=== PATIENT | female | born 1985 | race Caucasian/White ===

== ENCOUNTER 2017-12-15 13:06 | Emergency (ER) | payer MEDICAID ==
[~2017-12-15] VITALS: Ht 152.4 cm; Wt 85.0 kg
[2017-12-15] MEDS ORDERED: ketorolac trometh inj. 60 MG/2 ML VIAL IM ONE (13:45)
[2017-12-15] MEDS ORDERED: HYDR-565 PO (14:27)
[2017-12-15 14:31] VITALS: BP 121/89
== END 2017-12-15 14:32 | disposition home or self-care (01) ==
LOC: ER 13:06
DX: S20.221A Contusion of right back wall of thorax, initial encounter (principal); W01.0XXA Fall on same level from slipping, tripping and stumbling without subsequent striking against object, initial encounter; Y93.89 Activity, other specified; Y92.89 Other specified places as the place of occurrence of the external cause; Y99.9 Unspecified external cause status
CPT/HCPCS: 72070; 96372; 99284; J1885

== ENCOUNTER 2020-07-18 10:34 | Emergency (ER) | payer MEDICAID ==
[~2020-07-18] VITALS: Ht 152.4 cm; Wt 66.8 kg
[2020-07-18] MEDS ORDERED: morphine 4 MG/ML inj SYRINge IV ONE (11:15)
[2020-07-18] MEDS ORDERED: normal saline 1000ml 1,000 ML IV ONE (11:30)
[2020-07-18 11:41] LABS: BASOPHILS # (AUTO) 0.1 X10'3 (0-0.2); BASOPHILS % (AUTO) 0.8 % (0-1); EOSINOPHILS # (AUTO) 0.3 X10'3 (0-0.9); EOSINOPHILS % (AUTO) 2.7 % (0-6); HEMATOCRIT 41.6 % (35.0-45.0); HEMOGLOBIN 13.7 g/dl (12.0-16.0); LYMPHOCYTES # (AUTO) 4.3 X10'3 (1.1-4.8); MEAN CORPUSCULAR HEMOGLOBIN 29.1 PG (27.0-31.0); MEAN CORPUSCULAR VOLUME 88.2 FL (78-98); MEAN PLATELET VOLUME 8.2 FL (7.4-10.4); MONOCYTES # (AUTO) 0.7 X10'3 (0-0.9); MONOCYTES % (AUTO) 7.1 % (2-12); NEUTROPHILS # (AUTO) 4.8 X10'3 (1.8-7.7); NEUTROPHILS % (AUTO) 47.4 % (42-75); PLATELET COUNT 272 X10'3 (140-440); RED BLOOD COUNT 4.72 X10'6 (4.20-5.60); RED CELL DISTRIBUTION WIDTH 13.2 % (11.5-14.5); WHITE BLOOD COUNT 10.2 X10'3 (4.5-11.0)
[2020-07-18 11:59] LABS: ALANINE AMINOTRANSFERASE 53 U/L (12-78); ALBUMIN 3.5 G/DL (3.4-5.0); ALBUMIN/GLOBULIN RATIO 0.9 (1.1-1.5); ALKALINE PHOSPHATASE 67 IU/L (46-116); ANION GAP 9 (8-16); ASPARTATE AMINO TRANSFERASE 23 U/L (10-37); BILIRUBIN,TOTAL 0.3 MG/DL (0.1-1.0); BLOOD UREA NITROGEN 6 MG/DL (7-18); BUN/CREATININE RATIO 7.2 (6.6-38.0); CALCIUM 8.9 MG/DL (8.5-10.1); CHLORIDE 107 MMOL/L (99-107); CREATININE 0.83 MG/DL (0.40-0.90); GLUCOSE 88 MG/DL (70-104); POTASSIUM 3.5 MMOL/L (3.5-5.1); SODIUM 143 MMOL/L (135-145); TOTAL CARBON DIOXIDE 26.7 MMOL/L (24-32); TOTAL PROTEIN 7.3 G/DL (6.4-8.2); eGFR 79 ML/MIN
[2020-07-18 12:02] LABS: URINE HCG NEGATIVE (NEG)
[2020-07-18] MEDS ORDERED: iohexol 300mg/ml 100ml inj. ONE (12:36)
[2020-07-18] MEDS ORDERED: DOCU-267 PO (13:07)
[2020-07-18] MEDS ORDERED: NORE1TAB26 PO (13:07)
[2020-07-18] MEDS ORDERED: OXYC10TA47 PO (13:07)
[2020-07-18] MEDS ORDERED: CYCL5TAB PO (13:07)
[2020-07-18] MEDS ORDERED: OMEP40CA13 PO (13:07)
[2020-07-18] MEDS ORDERED: ONDA4TAB12 PO (13:07)
[2020-07-18] MEDS ORDERED: VITAFUSION PO (13:09)
[2020-07-18 13:38] VITALS: BP 123/82
[2020-07-18] MEDS: morphine 2 MG/ML inj. syringe IV PRN ×4 (13:38→16:00)
[2020-07-18] MEDS ORDERED: LIDOcaine 1% W/epiNEPHrine 1:100,000 20ml vial ONE (14:00)
[2020-07-18] MEDS ORDERED: normal saline 1000ml 1,000 ML IV SCH (14:35)
[2020-07-18] MEDS ORDERED: magnesium hydroxide 30ml (MOM) UD suspension PO PRN (14:35)
[2020-07-18] MEDS ORDERED: ondansetron/PF 4mg/2ml inj IV PRN (14:35)
[2020-07-18] MEDS ORDERED: morphine 2 MG/ML inj. syringe IV PRN (14:35)
[2020-07-18] MEDS ORDERED: acetaminophen 325mg tablet PO PRN (14:35)
[2020-07-18] MEDS ORDERED: mag hydrox/Alum hydrox/simeth 30ml oral suspension PO PRN (14:35)
--- NOTE | 2020-07-18 16:02 | NUR ---
Report called to CRUZ Crowell
[2020-07-18] MEDS ORDERED: ondansetron/PF 4mg/2ml inj IV ONE (16:30)
[2020-07-18] MEDS ORDERED: heparin, porcine 5000 units/ml vial SQ SCH (20:00)
== END 2020-07-18 17:14 | disposition home or self-care (01) ==
LOC: ER 10:35 → UNDOADMOB 14:32 → ED HOLD 14:32 → UNDODISOB 17:17
DX: R10.11 Right upper quadrant pain (principal); R14.0 Abdominal distension (gaseous); Z98.890 Other specified postprocedural states; Z90.49 Acquired absence of other specified parts of digestive tract; Z56.0 Unemployment, unspecified; Z91.040 Latex allergy status; Z88.6 Allergy status to analgesic agent; Z88.8 Allergy status to other drugs, medicaments and biological substances; Z79.899 Other long term (current) drug therapy
CPT/HCPCS: 36415; 74177; 80053; 81025; 85025; 85610; 96361; 96374; 96375; 96376; 99285; J2270; J2405; J7030; Q9967; G0378

== ENCOUNTER 2020-08-18 20:57 | Emergency (ER) | payer MEDICAID ==
[~2020-08-18] VITALS: Ht 149.9 cm; Wt 62.2 kg
[~2020-08-18 20:57] MED LIST: CYCL5TAB PO; DOCU-267 PO; NORE1TAB26 PO; OMEP40CA13 PO; ONDA4TAB12 PO; OXYC10TA47 PO; VITAFUSION PO
[2020-08-18] MEDS ORDERED: normal saline 1000ML IV soln IVB STA (20:59)
[2020-08-18] MEDS ORDERED: famotidine/PF 10 mg/ml inj IV ONE (21:00)
[2020-08-18] MEDS ORDERED: ipratropium/albuterol 3ml nebule NEB ONE (21:00)
[2020-08-18] MEDS ORDERED: methylPREDNISolone sod succ 125mg/2ml vial IV ONE (21:00)
[2020-08-18] MEDS ORDERED: diphenhydrAMINE 50 mg/ml inj IV ONE (21:00)
[2020-08-18] MEDS ORDERED: triamcinolone acetonide 40mg/ml inj IM ONE (21:00)
[2020-08-18] MEDS ORDERED: epiNEPHrine 1 mg/ml inj SQ ONE (21:00)
[2020-08-18 21:29] VITALS: BP 108/72
[2020-08-18] MEDS ORDERED: EPIN0.1521 IM (21:52)
== END 2020-08-18 23:18 | disposition home or self-care (01) ==
LOC: ER 20:57
DX: T78.40XA Allergy, unspecified, initial encounter (principal); R06.02 Shortness of breath; R07.89 Other chest pain; R06.2 Wheezing; Z90.49 Acquired absence of other specified parts of digestive tract; Z91.040 Latex allergy status; Z88.5 Allergy status to narcotic agent; Z88.6 Allergy status to analgesic agent; Z79.899 Other long term (current) drug therapy; X58.XXXA Exposure to other specified factors, initial encounter
CPT/HCPCS: 93005; 94640; 96372; 96374; 96375; 99284; J0171; J1200; J2930; J3301; J3490; J7030; 94760

== ENCOUNTER 2021-05-13 20:27 | Emergency (ER) | payer MEDICAID ==
[~2021-05-13] VITALS: Ht 170.2 cm; Wt 54.0 kg
[~2021-05-13 20:27] MED LIST changes: +DOCU-262 PO; -DOCU-267 PO; +EPIN0.1521 IM; -OMEP40CA13 PO; +OMEP40CA21 PO
[2021-05-13 20:33] VITALS: BP 143/100
[2021-05-13] MEDS ORDERED: normal saline 1000ML IV soln IVB STA (20:36)
[2021-05-13] MEDS ORDERED: famotidine/PF 10 mg/ml inj IV ONE (20:40)
[2021-05-13] MEDS ORDERED: epiNEPHrine 1 mg/ml inj SQ ONE (20:40)
== END 2021-05-13 22:05 | disposition home or self-care (01) ==
LOC: ER 20:27
DX: R06.02 Shortness of breath (principal); T78.02XA Anaphylactic reaction due to shellfish (crustaceans), initial encounter; R00.0 Tachycardia, unspecified; Z90.49 Acquired absence of other specified parts of digestive tract; Z88.6 Allergy status to analgesic agent; Z91.040 Latex allergy status; Z91.013 Allergy to seafood; Z79.899 Other long term (current) drug therapy; Y92.89 Other specified places as the place of occurrence of the external cause
CPT/HCPCS: 96372; 96374; 99284; J0171; J3490; J7030

== ENCOUNTER 2021-10-18 14:35 | Emergency (ER) | payer MEDICAID ==
[~2021-10-18] VITALS: Ht 149.9 cm; Wt 56.8 kg
[2021-10-18] MEDS ORDERED: DEXAMETHASONE 6 MG TABLET PO SCH (15:10)
[2021-10-18] MEDS ORDERED: diphenhydrAMINE 25mg capsule PO ONE (15:10)
[2021-10-18 15:54] VITALS: BP 103/63
[2021-10-18] MEDS ORDERED: EPIN0.3P3 IM (16:59)
== END 2021-10-18 17:14 | disposition home or self-care (01) ==
LOC: ER 14:36
DX: T78.40XA Allergy, unspecified, initial encounter (principal); Z90.49 Acquired absence of other specified parts of digestive tract; Z98.890 Other specified postprocedural states; Z88.5 Allergy status to narcotic agent; Z91.040 Latex allergy status; Z88.6 Allergy status to analgesic agent; Z91.013 Allergy to seafood; Z79.899 Other long term (current) drug therapy; X58.XXXA Exposure to other specified factors, initial encounter
CPT/HCPCS: 99283; Q0163; J8540

== ENCOUNTER 2022-04-04 20:39 | Emergency (ER) | payer MEDICAID ==
[~2022-04-04] VITALS: Ht 149.9 cm; Wt 57.3 kg
[~2022-04-04 20:39] MED LIST changes: +EPIN0.3P3 IM
[2022-04-04 20:54] LABS: BASOPHILS # (AUTO) 0.1 X10'3 (0-0.2); BASOPHILS % (AUTO) 0.9 % (0-1); EOSINOPHILS # (AUTO) 0.2 X10'3 (0-0.9); EOSINOPHILS % (AUTO) 1.8 % (0-6); HEMATOCRIT 43.7 % (35.0-45.0); HEMOGLOBIN 14.6 g/dl (12.0-16.0); LYMPHOCYTES # (AUTO) 3.5 X10'3 (1.1-4.8); LYMPHOCYTES % (AUTO) 40.1 % (21-51); MEAN CORPUSCULAR HEMOGLOBIN 29.9 PG (27.0-31.0); MEAN CORPUSCULAR HGB CONC 33.5 g/dL (33.0-36.5); MEAN CORPUSCULAR VOLUME 89.2 FL (78-98); MEAN PLATELET VOLUME 7.9 FL (7.4-10.4); MONOCYTES # (AUTO) 0.6 X10'3 (0-0.9); NEUTROPHILS # (AUTO) 4.4 X10'3 (1.8-7.7); NEUTROPHILS % (AUTO) 50.2 % (42-75); PLATELET COUNT 262 X10'3 (140-440); RED CELL DISTRIBUTION WIDTH 13.1 % (11.5-14.5); WHITE BLOOD COUNT 8.7 X10'3 (4.5-11.0)
[2022-04-04 21:42] LABS: ALANINE AMINOTRANSFERASE 14 U/L (12-78); ALBUMIN 4.3 G/DL (3.4-5.0); ALBUMIN/GLOBULIN RATIO 1.2 (1.1-1.5); ALKALINE PHOSPHATASE 76 IU/L (46-116); ANION GAP 6 (8-16); ASPARTATE AMINO TRANSFERASE 19 U/L (10-37); BILIRUBIN,TOTAL 0.3 MG/DL (0.1-1.0); BLOOD UREA NITROGEN 13 MG/DL (7-18); BUN/CREATININE RATIO 16.7 (6.6-38.0); CALCIUM 8.9 MG/DL (8.5-10.1); CHLORIDE 106 MMOL/L (99-107); CREATININE 0.78 MG/DL (0.40-0.90); GLUCOSE 108 MG/DL (70-104); MAGNESIUM 2.4 MG/DL (1.5-2.4); POTASSIUM 4.4 MMOL/L (3.5-5.1); SODIUM 138 MMOL/L (135-145); TOTAL CARBON DIOXIDE 26.1 MMOL/L (24-32); TOTAL PROTEIN 7.9 G/DL (6.4-8.2); eGFR 85 ML/MIN
[2022-04-05] MEDS ORDERED: ringers solution, lacted 1,000 ML IV ONE (01:45)
[2022-04-05] MEDS ORDERED: acetaminophen 325mg tablet PO ONE (01:45)
[2022-04-05] MEDS ORDERED: iohexol 350MG/ML 100ml bottle IV ONE (01:50)
--- NOTE | 2022-04-05 02:00 | NUR ---
Vocal Teacher agrees with EDWAR Owen assessment.
[2022-04-05 02:17] LABS: CLARITY,URINE CLEAR (Clear); COLOR,URINE YELLOW (Yellow); GLUCOSE, URINE NEGATIVE (Neg); KETONES,URINE 15 mg/dl (Neg); LEUKOCYTE ESTERASE ,URINE NEGATIVE (Neg); NITRITES, URINE NEGATIVE (Neg); OCCULT BLOOD,URINE NEGATIVE (Neg); PROTEIN,URINE NEGATIVE (Neg); UROBILINOGEN,URINE 0.2 E.U/dL (0.2-1.0)
[2022-04-05 02:18] LABS: URINE HCG NEGATIVE (NEG)
[2022-04-05 02:19] LABS: UA COLLECTION TYPE NON-SPECIFIED
[2022-04-05 02:31] LABS: URINE AMPHETAMINE SCREEN POSITIVE (Neg); URINE BARBITUATE SCREEN NEGATIVE (Neg); URINE BENZODIAZEPINES SCREEN NEGATIVE (Neg); URINE CANNABINOID SCREEN NEGATIVE (Neg); URINE COCAINE SCREEN NEGATIVE (Neg); URINE METHADONE SCREEN NEGATIVE (Neg); URINE OPIATE SCREEN NEGATIVE (Neg); URINE PHENCYCLIDINE SCREEN NEGATIVE (Neg)
[2022-04-05 05:00] VITALS: BP 102/66
== END 2022-04-05 05:02 | disposition home or self-care (01) ==
LOC: ER 20:40
DX: R07.9 Chest pain, unspecified (principal); R06.02 Shortness of breath; Z90.49 Acquired absence of other specified parts of digestive tract; Z88.8 Allergy status to other drugs, medicaments and biological substances; Z88.5 Allergy status to narcotic agent; Z79.899 Other long term (current) drug therapy; Z91.040 Latex allergy status; Z88.6 Allergy status to analgesic agent
CPT/HCPCS: 36415; 71045; 71275; 80053; 80305; 81003; 81025; 83735; 83880; 84484; 85025; 93005; 96360; 96361; 99285; J3490; J7120; Q9967

== ENCOUNTER 2022-04-06 15:41 | Emergency (ER) | payer MEDICAID ==
[~2022-04-06] VITALS: Ht 149.9 cm; Wt 63.6 kg
[2022-04-06 15:52] VITALS: BP 126/77
[2022-04-06 15:55] LABS: BASOPHILS % (AUTO) 0.5 % (0-1); EOSINOPHILS # (AUTO) 0.2 X10'3 (0-0.9); EOSINOPHILS % (AUTO) 2.7 % (0-6); HEMATOCRIT 41.5 % (35.0-45.0); LYMPHOCYTES % (AUTO) 36.9 % (21-51); MEAN CORPUSCULAR HGB CONC 33.7 g/dL (33.0-36.5); MEAN CORPUSCULAR VOLUME 88.9 FL (78-98); MEAN PLATELET VOLUME 7.8 FL (7.4-10.4); MONOCYTES # (AUTO) 0.6 X10'3 (0-0.9); MONOCYTES % (AUTO) 7.6 % (2-12); NEUTROPHILS # (AUTO) 4.3 X10'3 (1.8-7.7); NEUTROPHILS % (AUTO) 52.3 % (42-75); PLATELET COUNT 251 X10'3 (140-440); RED BLOOD COUNT 4.66 X10'6 (4.20-5.60); RED CELL DISTRIBUTION WIDTH 13.3 % (11.5-14.5); WHITE BLOOD COUNT 8.2 X10'3 (4.5-11.0)
[2022-04-06 16:11] LABS: ALANINE AMINOTRANSFERASE 14 U/L (12-78); ALBUMIN 3.9 G/DL (3.4-5.0); ALBUMIN/GLOBULIN RATIO 1.1 (1.1-1.5); ALKALINE PHOSPHATASE 76 IU/L (46-116); ANION GAP 8 (8-16); ASPARTATE AMINO TRANSFERASE 12 U/L (10-37); BILIRUBIN,TOTAL 0.2 MG/DL (0.1-1.0); BLOOD UREA NITROGEN 9 MG/DL (7-18); BUN/CREATININE RATIO 13.4 (6.6-38.0); CALCIUM 8.6 MG/DL (8.5-10.1); CHLORIDE 108 MMOL/L (99-107); CREATININE 0.67 MG/DL (0.40-0.90); GLUCOSE 102 MG/DL (70-104); POTASSIUM 3.7 MMOL/L (3.5-5.1); SODIUM 141 MMOL/L (135-145); TOTAL CARBON DIOXIDE 25.4 MMOL/L (24-32); TOTAL PROTEIN 7.3 G/DL (6.4-8.2); eGFR > 90 ML/MIN
[2022-04-06 22:15] LABS: D-DIMER < 0.19 MG/L FEU (0-0.50)
--- NOTE | 2022-04-07 00:50 | NUR ---
PT TX AND D/C BY
== END 2022-04-07 00:50 | disposition home or self-care (01) ==
LOC: ER 15:42
DX: I73.9 Peripheral vascular disease, unspecified (principal); R07.89 Other chest pain; Z90.49 Acquired absence of other specified parts of digestive tract; Z98.890 Other specified postprocedural states; Z91.040 Latex allergy status; Z88.6 Allergy status to analgesic agent; Z91.013 Allergy to seafood; Z79.899 Other long term (current) drug therapy
CPT/HCPCS: 36415; 71045; 80053; 83735; 83880; 84484; 85025; 85379; 85651; 93005; 93971; 99285

== ENCOUNTER 2023-08-13 13:37 | Day surgery (SDC) | payer BC ==
[2023-08-07 15:43] LABS: BASOPHILS # (AUTO) 0.1 X10'3 (0-0.2); BASOPHILS % (AUTO) 0.5 % (0-1); EOSINOPHILS # (AUTO) 0.3 X10'3 (0-0.9); EOSINOPHILS % (AUTO) 2.4 % (0-6); LYMPHOCYTES # (AUTO) 2.7 X10'3 (1.1-4.8); LYMPHOCYTES % (AUTO) 25.6 % (21-51); MEAN CORPUSCULAR HEMOGLOBIN 29.4 PG (27.0-31.0); MEAN CORPUSCULAR HGB CONC 33.6 g/dL (33.0-36.5); MEAN CORPUSCULAR VOLUME 87.3 FL (78-98); MONOCYTES # (AUTO) 0.8 X10'3 (0-0.9); MONOCYTES % (AUTO) 7.2 % (2-12); NEUTROPHILS # (AUTO) 6.9 X10'3 (1.8-7.7); NEUTROPHILS % (AUTO) 64.3 % (42-75); PRE OP HEMATOCRIT 42.1 % (35.0-45.0); PRE OP HEMOGLOBIN 14.1 g/dL (12.0-16.0); PRE OP PLATELET COUNT 292 X10'3 (140-440); PRE OP WHITE BLOOD COUNT 10.7 10'3 (4.8-10.8); RED BLOOD COUNT 4.82 X10'6 (4.20-5.60); RED CELL DISTRIBUTION WIDTH 13.3 % (11.5-14.5)
[2023-08-07 15:44] LABS: URINE HCG NEGATIVE (NEG)
[2023-08-07 15:58] LABS: ALBUMIN 3.7 G/DL (3.4-5.0); ALBUMIN/GLOBULIN RATIO 0.9 (1.1-1.5); ALKALINE PHOSPHATASE 74 IU/L (46-116); BLOOD UREA NITROGEN 15 MG/DL (7-18); BUN/CREATININE RATIO 21.4 (10.0-20.0); CALCIUM 8.4 MG/DL (8.5-10.1); CHLORIDE 105 MMOL/L (99-107); PRE OP ALT 13 U/L (30-65); PRE OP ANION GAP 7 (8-16); PRE OP AST 13 U/L (10-37); PRE OP BILIRUB, TOTAL 0.4 MG/DL (0.0-1.0); PRE OP GLUCOSE 88 MG/DL (70-104); PRE OP SODIUM 140 MMOL/L (135-145); TOTAL CARBON DIOXIDE 27.9 MMOL/L (24-32); TOTAL PROTEIN 7.6 G/DL (6.4-8.2); eGFR > 90 ML/MIN
[2023-08-13] VITALS (10 sets, daily range): BP systolic 108–126; BP diastolic 68–78; PULSE 89–121; RESP 14–24; TEMP 99; O2SAT 98–100
[~2023-08-13] VITALS: Ht 149.9 cm; Wt 66.0 kg
[2023-08-13] MEDS: ceFOXitin 2GM-NS 100mL ADDvant 100 ML IV ONE (05:30)
[~2023-08-13 13:37] MED LIST changes: +ACET-1025 PO; +ACET-1939 PO; -CYCL5TAB PO; -DOCU-262 PO; -EPIN0.1521 IM; -EPIN0.3P3 IM; -NORE1TAB26 PO; -OMEP40CA21 PO; -ONDA4TAB12 PO; -OXYC10TA47 PO; +PHEN37.58 PO; -VITAFUSION PO
[2023-08-13] MEDS: famotidine 20mg tablet PO ONE (14:22)
[2023-08-13] MEDS: ringers solution, lacted 1,000 ML IV SCH ×2 (14:23→17:17)
[2023-08-13] MEDS ORDERED: BUPIVAcaine 0.25% w/Epi /PF 30ml vial ONE (15:42)
[2023-08-13] MEDS ORDERED: sevoflurane 250ml liquid IH ONE (15:59)
[2023-08-13] MEDS ORDERED: fentaNYL/PF 50MCG/1 ML 2ML syringe IV PRN ×2 (16:00)
[2023-08-13] MEDS ORDERED: meperidine/PF 25mg/ml syringe IV PRN ×2 (16:00)
[2023-08-13] MEDS ORDERED: labetalol 20mg/4ml (5mg/ml) syringe IV PRN (16:00)
[2023-08-13] MEDS ORDERED: proCHLORperazine 10 MG/2 ml inj IV PRN (16:00)
[2023-08-13] MEDS ORDERED: hydrALAZINE 20mg/ml inj. IV PRN (16:00)
[2023-08-13] MEDS ORDERED: midazolam 1 mg/ML 2ml injection ONE (16:05)
[2023-08-13] MEDS ORDERED: fentaNYL/PF 50MCG/1 ML 2ML syringe ONE (16:05)
[2023-08-13] MEDS ORDERED: rocuronium 10mg/ml inj IV ONE (16:26)
[2023-08-13] MEDS ORDERED: dexamethasone sod phosphate 4mg/ml inj. ONE (16:26)
[2023-08-13] MEDS ORDERED: LIDOcaine 1%/PF 5ML 10 MG/ML VIAL ONE (16:26)
[2023-08-13] MEDS ORDERED: ondansetron/PF 4mg/2ml inj ONE (16:26)
[2023-08-13] MEDS ORDERED: propofol inj 20 ML IV ONE (16:26)
[2023-08-13] MEDS ORDERED: neostigmine methylsulfate 1 MG/ML 10ml vial ONE (16:27)
[2023-08-13] MEDS ORDERED: glycopyrrolate 0.2mg/ml inj ONE (16:27)
[2023-08-13] MEDS: BUPIVAcaine 0.25% w/Epi /PF 30ml vial IJ ONE (16:28)
[2023-08-13] MEDS: meperidine/PF 25mg/ml syringe IV PRN (17:16)
[2023-08-13] MEDS: acetaminophen 1,000mg/100ml IV 100 ML IV ONE (17:17)
[2023-08-13] MEDS: ondansetron/PF 4mg/2ml inj IV PRN (17:25)
== END 2023-08-13 18:12 | disposition home or self-care (01) ==
LOC: PAS 13:37
PROVIDERS: ATTEND Specialist
DX: Z30.2 Encounter for sterilization (principal); Z79.2 Long term (current) use of antibiotics; Z79.891 Long term (current) use of opiate analgesic; Z79.899 Other long term (current) drug therapy; Z88.5 Allergy status to narcotic agent; Z91.013 Allergy to seafood; Z83.3 Family history of diabetes mellitus; Z80.0 Family history of malignant neoplasm of digestive organs; Z90.49 Acquired absence of other specified parts of digestive tract; Z88.8 Allergy status to other drugs, medicaments and biological substances
CPT/HCPCS: 36415; 58670; 80053; 81025; 82948; 85025; J0131; J0665; J0694; J1100; J2175; J2250; J2405; J2704; J2710; J3010; J3490; J7030; J7120; Z7506; Z7512; A4618; S0020

== ENCOUNTER 2023-08-16 10:19 | Emergency (ER) | payer BC ==
[~2023-08-16] VITALS: Ht 149.9 cm; Wt 66.5 kg
[2023-08-16 10:52] VITALS: TEMP 97.5
[2023-08-16] MEDS ORDERED: dexamethasone sod phosphate 10mg/ml inj PO STA (13:16)
[2023-08-16] MEDS: normal saline 1000ml 1,000 ML IV ONE (13:35)
[2023-08-16] MEDS: normal saline 1000ML IV soln IVB ONE (13:36)
[2023-08-16] MEDS: CefTRIAXone 2gm/D5W 50ml BAG 50 ML IV ONE (13:36)
[2023-08-16] MEDS: dexamethasone sod phosphate 10mg/ml inj IV STA (13:37)
[2023-08-16 14:15] LABS: ALANINE AMINOTRANSFERASE 17 U/L (12-78); ALBUMIN 3.3 G/DL (3.4-5.0); ALBUMIN/GLOBULIN RATIO 0.7 (1.1-1.5); ALKALINE PHOSPHATASE 79 IU/L (46-116); ANION GAP 4 (8-16); ASPARTATE AMINO TRANSFERASE 20 U/L (10-37); BILIRUBIN,TOTAL 0.4 MG/DL (0.1-1.0); BLOOD UREA NITROGEN 5 MG/DL (7-18); BUN/CREATININE RATIO 7.5 (10.0-20.0); CALCIUM 8.9 MG/DL (8.5-10.1); CHLORIDE 101 MMOL/L (99-107); CREATININE 0.67 MG/DL (0.40-0.90); GLUCOSE 86 MG/DL (70-104); POTASSIUM 3.7 MMOL/L (3.5-5.1); SODIUM 132 MMOL/L (135-145); TOTAL CARBON DIOXIDE 26.9 MMOL/L (24-32); TOTAL PROTEIN 7.8 G/DL (6.4-8.2); eCRCL 79 ML/MIN; eGFR > 90 ML/MIN
[2023-08-16] MEDS ORDERED: ketorolac trometh. 30mg/ml inj. IV ONE (14:20)
[2023-08-16] MEDS ORDERED: AMOX200S8 PO (14:23)
[2023-08-16] MEDS: acetaminophen 1,000mg/100ml IV 100 ML IV STA (14:53)
[2023-08-16] MEDS: ketorolac tromethamine 15mg/ml inj. IV ONE (14:53)
[2023-08-16 15:43] LABS: STREP A SCREEN NEGATIVE (Neg)
[2023-08-16 15:47] VITALS: BP 130/73; PULSE 95; RESP 16; O2SAT 98
== END 2023-08-16 15:49 | disposition home or self-care (01) ==
LOC: ER 10:20
DX: R07.0 Pain in throat (principal); R13.10 Dysphagia, unspecified; Z90.49 Acquired absence of other specified parts of digestive tract; Z79.899 Other long term (current) drug therapy; Z88.8 Allergy status to other drugs, medicaments and biological substances; Z91.040 Latex allergy status; Z91.013 Allergy to seafood
CPT/HCPCS: 36415; 80048; 80053; 84145; 87081; 87880; 96365; 96375; 99285; J0131; J0696; J1100; J1885; J7030; 96366; 96368